=== PATIENT | male | born 1970 | race Caucasian/White ===

== ENCOUNTER → 2017-08-09 16:03 | Outpatient (CLI) | payer SELFPAY ==
[2017-08-09 18:35] LABS: AST(SGOT) 137 U/L (15-37); Alanine Aminotransfer ALT/SGPT 287 U/L (16-61); Albumin, Serum 3.3 g/dL (3.2-5.0); Alkaline Phosphatase 500 U/L (45-117); Ferritin 630 ng/mL (26-388); Globulin 4.4 g/dL (2.2-4.2); Protein, Total 7.7 g/dL (6.4-8.2)
[2017-08-12 14:06] LABS: ANTINUCLEAR ANTIBODIES DIRECT Negative (Negative); Anti-Mitochondrial AB <20.0 Units (0.0-20.0)
[2017-08-12 14:07] LABS: Anti-Smooth Muscle ABS 11 Units (0-19); HEPATITIS B SURFACE AG Negative (Negative); Hep C Antibodies <0.1 s/co ratio (0.0-0.9)
== END ==
PROVIDERS: Family Provider Family Medicine; PCP Family Medicine; Visit Provider Internal Medicine Gastroenterology
DX: K75.9 Inflammatory liver disease, unspecified (principal)
CPT/HCPCS: 36415; 80076; 82728; 83516; 86038; 86803; 87340

== ENCOUNTER → 2017-09-22 07:12 | Outpatient (CLI) | payer SELFPAY | PROVIDERS: Family Provider Family Medicine; PCP Family Medicine; Visit Provider Internal Medicine Gastroenterology | DX: R17 Unspecified jaundice (principal) | CPT/HCPCS: 74160; Q9967 ==